=== PATIENT | female | born 1940 | race Hispanic/Latino ===

== ENCOUNTER 2018-10-14 03:53 | Inpatient (IN) | payer MEDICARE ==
[2018-10-14] MEDS ORDERED: ASPIRIN PO ONE (04:02)
[2018-10-14] MEDS ORDERED: NACL 0.9% 1000 ML 1,000 ML IV ONE (04:13)
[2018-10-14] MEDS ORDERED: CARDIZEM IV ONE (04:14)
--- NOTE | 2018-10-14 04:51 | XRay Report ---
FINAL REPORT PROCEDURE: XR CHEST 1V AP TECHNIQUE: Chest radiograph anteroposterior view. CPT 24770 HISTORY: chest pain COMPARISON: No prior studies are available for comparison. FINDINGS: Heart: Normal. Mediastinum/Vessels: Normal. Lungs/Pleural space: Normal. Bony thorax: No acute osseous abnormality. Life support devices: None. IMPRESSION: No acute cardiopulmonary abnormality.
[2018-10-14 04:53] LABS: Basophils % (Auto) 0.4 % (0.0-1.8); Eosinophils # (Auto) 0.1 K/mm3 (0.0-0.4); Eosinophils % (Auto) 0.8 % (0.0-4.3); Hematocrit 46.3 % (30.3-42.9); Hemoglobin 15.5 gm/dl (10.1-14.3); INR 0.99 (0.87-1.13); Lymphocytes # (Auto) 1.5 K/mm3 (1.2-5.4); Lymphocytes % (Auto) 17.9 % (13.4-35.0); Mean Corpuscular HGB Conc 34 % (30-34); Mean Corpuscular Volume 92 fl (79-97); Monocytes # (Auto) 0.3 K/mm3 (0.0-0.8); Monocytes % (Auto) 3.9 % (0.0-7.3); Platelet Count 169 K/mm3 (140-440); Red Blood Count 5.06 M/mm3 (3.65-5.03); Red Cell Distribution Width 14.1 % (13.2-15.2)
[2018-10-14] MEDS ORDERED: CARDIZEM PO ONE (05:05)
[2018-10-14 05:13] LABS: BUN/Creatinine Ratio 20; Blood Urea Nitrogen 14 mg/dL (7-17); Hemolysis Index 11
--- NOTE | 2018-10-14 05:15 | Emergency Department Report ---
ED Chest Pain HPI - General Chief Complaint: Chest Pain Stated Complaint: CHEST PAIN Time Seen by Provider: 10/14/18 04:13 Source: patient, EMS Mode of arrival: Stretcher Limitations: No Limitations - History of Present Illness Initial Comments: 78-year-old female presents to ED with onset of burning chest pain one hour prior to arrival. She also reports palpitations. Denies any history of arrhythmia. Denies shortness of breath. Patient found to be tachycardic with EMS with a heart rate in the 160s. Patient given 324 mg of aspirin. Patient noncompliant w/ her medications. Unsure of what meds she should be taking. PCP: Mari TALLEY Complaint: chest pain -: hour(s) (1) Onset: during rest Pain Location: substernal Pain Radiation: none Severity: moderate Severity scale (0 -10): 10 Quality: other (burning) Consistency: constant Improves With: nothing Worsens With: nothing re: denies: nausea, vomting, diaphoresis, dyspnea - Related Data Previous Rx's Medication Instructions Recorded Last Taken Type Lisinopril [Zestril TAB] 40 mg PO QDAY #30 tablet 07/18/14 Unknown Rx Pantoprazole [Protonix TAB] 40 mg PO QDAY #30 tablet 07/18/14 Unknown Rx Simvastatin (Nf) [Zocor TAB] 20 mg PO QHS #30 tablet 07/18/14 Unknown Rx amLODIPine [Norvasc] 10 mg PO QDAY #30 tablet 07/18/14 Unknown Rx hydrALAZINE [Apresoline TAB] 25 mg PO Q8HR #90 tablet 07/18/14 Unknown Rx Allergies Allergy/AdvReac Type Severity Reaction Status Date / Time codeine AdvReac Dizziness Verified 06/23/13 12:24 Heart Score - HEART Score History: Slightly suspicious EKG: Non-specific Age: > 65 Risk factors: 1-2 risk factors Troponin: < normal limit HEART Score: 4 - Critical Actions Critical Actions: 4-6 pts:12-16.6% risk of adverse cardiac event. Should be admitted ED Review of Systems ROS: Stated complaint: CHEST PAIN Other details as noted in HPI Comment: All other systems reviewed and negative Respiratory: denies: shortness of breath Cardiovascular: chest pain Gastrointestinal: denies: nausea, vomiting Musculoskeletal: other (denies legpain or swelling) ED Past Medical Hx - Past Medical History Previous Medical History?: Yes Hx Hypertension: Yes Hx Diabetes: Yes Additional medical history: HIGH CHOLESTEROL - Surgical History Past Surgical History?: Yes Additional Surgical History: HYST., C SECTION - Social History Smoking Status: Former Smoker Substance Use Type: Prescribed - Medications Home Medications: Home Medications Medication Instructions Recorded Confirmed Last Taken Type Lisinopril [Zestril TAB] 40 mg PO QDAY #30 tablet 07/18/14 Unknown Rx Pantoprazole [Protonix TAB] 40 mg PO QDAY #30 tablet 07/18/14 Unknown Rx Simvastatin (Nf) [Zocor TAB] 20 mg PO QHS #30 tablet 07/18/14 Unknown Rx amLODIPine [Norvasc] 10 mg PO QDAY #30 tablet 07/18/14 Unknown Rx hydrALAZINE [Apresoline TAB] 25 mg PO Q8HR #90 tablet 07/18/14 Unknown Rx ED Physical Exam - General Limitations: No Limitations General appearance: alert, in no apparent distress - Head Head exam: Present: atraumatic - Eye Eye exam: Present: normal appearance - ENT ENT exam: Present: mucous membranes moist - Neck Neck exam: Present: normal inspection - Respiratory Respiratory exam: Present: normal lung sounds bilaterally. Absent: respiratory distress - Cardiovascular Cardiovascular Exam: Present: tachycardia, irregular rhythm - GI/Abdominal GI/Abdominal exam: Present: soft. Absent: distended, tenderness - Extremities Exam Extremities exam: Present: normal inspection - Neurological Exam Neurological exam: Present: alert, oriented X3 - Psychiatric Psychiatric exam: Present: normal affect, normal mood - Skin Skin exam: Present: warm, dry, intact, normal color. Absent: rash ED Course Vital Signs 10/14/18 10/14/18 10/14/18 03:54 03:56 04:00 Temperature 97.7 F Pulse Rate 156 H 167 H 165 H Respiratory 27 H 16 27 H Rate Blood Pressure 146/98 146/98 O2 Sat by Pulse 97 96 Oximetry 10/14/18 10/14/18 10/14/18 04:15 04:30 04:37 Temperature Pulse Rate 144 H 147 H 161 H Respiratory 14 20 Rate Blood Pressure 136/94 146/98 138/110 O2 Sat by Pulse 95 Oximetry 10/14/18 10/14/18 10/14/18 04:46 05:00 05:20 Temperature Pulse Rate 100 H 96 H 108 H Respiratory 20 21 Rate Blood Pressure 129/46 125/54 127/65 O2 Sat by Pulse 94 97 Oximetry - Reevaluation(s) Reevaluation #1: 10/14/18 05:20 Daughter currently at bedside. States patient was actually diagnosed with A. fib approximately 2-3 months ago [place]. Patient was supposed to wear a heart monitor and follow-up with cardiology, however did not do so. Patient also noncompliant w/ meds. ED Medical Decision Making - Lab Data Result diagrams: 10/14/18 04:35 10/14/18 04:35 - EKG Data -: EKG Interpreted by Me EKG shows normal: axis, QRS complexes Rate: tachycardia (rate 162) - EKG Data Interpretation: nonspecific ST-T wave melissa, other (Afib w/ RVR) - Radiology Data Radiology results: report reviewed, image reviewed - Medical Decision Making 78-year-old female history of A. fib presents with heart rate in 160s. Repeat improved with 1 L bolus of fluids and 20 mg of Cardizem. She has history of A. fib, however is noncompliant with her medications. Chest x-ray normal, troponin negative. Patient feeling much better at this time, chest pain resolved. Will admit to hospitalist, Dr. Stephens, for further management. - Differential Diagnosis Afib w/ RVR, pulm edema, ACS Critical Care Time: Yes Critical care time in (mins) excluding proc time.: 35 Critical care attestation.: If time is entered above; I have spent that time in minutes in the direct care of this critically ill patient, excluding procedure time. Critical Care Time: 35 minutes ED Disposition Clinical Impression: Chest pain, Atrial fibrillation with rapid ventricular response Disposition: -09 OP ADMIT IP TO THIS HOSP Is pt being admited?: Yes Condition: Stable Time of Disposition: 05:23
[2018-10-14] MEDS ORDERED: LOVENOX SUB-Q ONE (05:16)
[2018-10-14] MEDS ORDERED: CARDIZEM ONE (05:20)
[2018-10-14] MEDS ORDERED: ZOFRAN IV PRN ×2 (07:08→07:14)
[2018-10-14] MEDS ORDERED: TYLENOL PO PRN ×2 (07:08→07:14)
[2018-10-14] MEDS ORDERED: SODIUM CHLORIDE FLUSH SYRINGE 10 ML IV PRN ×2 (07:08→07:14)
[2018-10-14] MEDS ORDERED: NITROSTAT SL PRN (07:14)
[2018-10-14] MEDS ORDERED: MORPHINE IV PRN (07:14)
[2018-10-14] MEDS ORDERED: LOPRESSOR IV ONE (07:25)
--- NOTE | 2018-10-14 07:45 | History and Physical Report ---
History of Present Illness Date of examination: 10/14/18 Date of admission: 10/14/2018 Chief complaint: Chest pain, palpitation History of present illness: Patient is an 78-year-old white female with past medical history of hypertension, hyperlipidemia, A. fib, acid reflex disease who was brought to the ER by EMS for complaints of palpitation and chest pain prior to arrival. Patient states that the symptoms started in the middle of the night she first started feeling her heart beating fast, lightheaded and chest. Patient states the pain was in the substernal area associated with palpitation, lightheadedness and nausea, patient also reports radiation to the left arm and numbness and tingling. Patient and daughter in the room report that she had similar episodes about 3-4 months ago, where she went to [facility] for the same complaints. She followed with cardiology and was placed in a holter monitor but she devoloped allergic reaction with the padding in the leads and they discontinued the monitoring. On arrival the ER patient's heart rate is 162, she was in A. fib, EKG showed no STEMI criteria, her blood pressure was stable. Pt was admitted for chest pain and A-fib with RVR. Past History Past Medical History: atrial fib, hypertension, hyperlipidemia Past Surgical History: No surgical history, Social history: no significant social history Family history: no significant family history Medications and Allergies Allergies Allergy/AdvReac Type Severity Reaction Status Date / Time codeine AdvReac Dizziness Verified 06/23/13 12:24 Home Medications Medication Instructions Recorded Confirmed Last Taken Type Lisinopril [Zestril TAB] 40 mg PO QDAY #30 tablet 07/18/14 Unknown Rx Pantoprazole [Protonix TAB] 40 mg PO QDAY #30 tablet 07/18/14 Unknown Rx Simvastatin (Nf) [Zocor TAB] 20 mg PO QHS #30 tablet 07/18/14 Unknown Rx amLODIPine [Norvasc] 10 mg PO QDAY #30 tablet 07/18/14 Unknown Rx hydrALAZINE [Apresoline TAB] 25 mg PO Q8HR #90 tablet 07/18/14 Unknown Rx Active Meds: Active Medications Acetaminophen (Tylenol) 650 mg PO Q4H PRN PRN Reason: Pain MILD(1-3)/Fever >100.5/RICO Acetaminophen (Tylenol) 650 mg PO Q4H PRN PRN Reason: Pain MILD(1-3)/Fever >100.5/RICO Amlodipine Besylate (Norvasc) 10 mg PO QDAY [facility] Aspirin (Ecotrin) 325 mg PO QDAY [facility] Famotidine (Pepcid) 20 mg IV BID [facility] Hydralazine HCl (Apresoline) 25 mg PO Q8HR [facility] Lisinopril (Zestril) 40 mg PO QDAY [facility] Miscellaneous Medication (Simvastatin (Nf)) 20 mg PO QHS [facility] Morphine Sulfate (Morphine) 2 mg IV Q4H PRN PRN Reason: Pain, Moderate (4-6) Nitroglycerin (Nitrostat) 0.4 mg SL Q5M PRN PRN Reason: Chest Pain Ondansetron HCl (Zofran) 4 mg IV Q8H PRN PRN Reason: Nausea And Vomiting Ondansetron HCl (Zofran) 4 mg IV Q8H PRN PRN Reason: Nausea And Vomiting Sodium Chloride (Sodium Chloride Flush Syringe 10 Ml) 10 ml IV BID [facility] Sodium Chloride (Sodium Chloride Flush Syringe 10 Ml) 10 ml IV PRN PRN PRN Reason: LINE FLUSH Sodium Chloride (Sodium Chloride Flush Syringe 10 Ml) 10 ml IV BID [facility] Sodium Chloride (Sodium Chloride Flush Syringe 10 Ml) 10 ml IV PRN PRN PRN Reason: LINE FLUSH Review of Systems Cardiovascular: chest pain, palpitations, lightheadedness Gastrointestinal: nausea Exam - Constitutional Vitals: Temp Pulse Resp BP Pulse Ox 97.7 F 90 20 117/38 95 10/14/18 03:56 10/14/18 07:00 10/14/18 07:00 10/14/18 07:00 10/14/18 07:00 General appearance: Present: no acute distress - EENT Eyes: Present: PERRL, irregular pupil - Neck Neck: Present: normal ROM - Respiratory Respiratory effort: normal Respiratory: bilateral: CTA - Cardiovascular Rhythm: regular Heart Sounds: Present: S1 & S2 - Extremities Extremities: no ischemia, No edema, Full ROM Peripheral Pulses: within normal limits - Abdominal General gastrointestinal: Present: non-tender, non-distended Female genitourinary: Present: normal - Musculoskeletal Musculoskeletal: strength equal bilaterally - Psychiatric Psychiatric: appropriate mood/affect, cooperative Results - Labs CBC & Chem 7: 10/14/18 04:35 10/14/18 04:35 Labs: Laboratory Last Values WBC 8.5 K/mm3 (4.5-11.0) 10/14/18 04:35 RBC 5.06 M/mm3 (3.65-5.03) H 10/14/18 04:35 Hgb 15.5 gm/dl (10.1-14.3) H 10/14/18 04:35 Hct 46.3 % (30.3-42.9) H 10/14/18 04:35 MCV 92 fl (79-97) 10/14/18 04:35 MCH 31 pg (28-32) 10/14/18 04:35 MCHC 34 % (30-34) 10/14/18 04:35 RDW 14.1 % (13.2-15.2) 10/14/18 04:35 Plt Count 169 K/mm3 (140-440) 10/14/18 04:35 Lymph % (Auto) 17.9 % (13.4-35.0) 10/14/18 04:35 [place] % (Auto) 3.9 % (0.0-7.3) 10/14/18 04:35 Eos % (Auto) 0.8 % (0.0-4.3) 10/14/18 04:35 Baso % (Auto) 0.4 % (0.0-1.8) 10/14/18 04:35 Lymph # 1.5 K/mm3 (1.2-5.4) 10/14/18 04:35 [place] # 0.3 K/mm3 (0.0-0.8) 10/14/18 04:35 Eos # 0.1 K/mm3 (0.0-0.4) 10/14/18 04:35 Baso # 0.0 K/mm3 (0.0-0.1) 10/14/18 04:35 Seg Neutrophils % 77.0 % (40.0-70.0) H 10/14/18 04:35 Seg Neutrophils # 6.6 K/mm3 (1.8-7.7) 10/14/18 04:35 PT 13.5 Sec. (12.2-14.9) 10/14/18 04:35 INR 0.99 (0.87-1.13) 10/14/18 04:35 Sodium 143 mmol/L (137-145) 10/14/18 04:35 Potassium 3.6 mmol/L (3.6-5.0) 10/14/18 04:35 Chloride 105.2 mmol/L (98-107) 10/14/18 04:35 Carbon Dioxide 25 mmol/L (22-30) 10/14/18 04:35 Anion Gap 16 mmol/L 10/14/18 04:35 BUN 14 mg/dL (7-17) 10/14/18 04:35 Creatinine 0.7 mg/dL (0.7-1.2) 10/14/18 04:35 Estimated GFR > 60 ml/min 10/14/18 04:35 BUN/Creatinine Ratio 20 % 10/14/18 04:35 Glucose 212 mg/dL (65-100) H 10/14/18 04:35 Calcium 9.0 mg/dL (8.4-10.2) 10/14/18 04:35 Troponin T < 0.010 ng/mL (0.00-0.029) 10/14/18 04:35 Assessment and Plan Assessment and plan: Patient is an 78-year-old female who presents with A. fib with RVR and chest pain, she is being admitted for evaluation of the presenting symptoms 1. Chest pain rule out LA 2. A. fib with RVR 3. Hypertension per history 4. Hyperlipidemia 5. Hyperglycemia 6. GERD Plan: Patient is admitted for chest pain and A. fib Continue cardiac enzymes 2 more Breasts are 2.5 time 1 dose Consult cardiology for chest pain and A. fib with RVR Resume home meds Repeat EKG with chest pain Morphine IV for chest pain Hemoglobin A1c, lipid panel DVT prophylaxis with Lovenox Continue to monitor blood pressure and heart rate Further plan per hospital course Plan discussed with patient and family in room, voiced understanding Patient's conditions and plan of care discussed with Dr Stephens VTE prophylaxis?: Chemical Plan of care discussed with patient/family: Yes
[2018-10-14 08:23] LABS: BUN/Creatinine Ratio 16; Blood Urea Nitrogen 14 mg/dL (7-17); Calcium 8.5 mg/dL (8.4-10.2); Hemolysis Index 10
[2018-10-14] MEDS ORDERED: NORVASC PO SCH (10:00)
[2018-10-14] MEDS ORDERED: SODIUM CHLORIDE FLUSH SYRINGE 10 ML IV SCH (10:00)
[2018-10-14] MEDS ORDERED: NORVASC ONE (10:30)
[2018-10-14] MEDS ORDERED: PEPCID IV ONE (10:31)
[2018-10-14] MEDS: ZESTRIL PO SCH (10:37)
[2018-10-14] MEDS: PEPCID IV SCH ×2 (10:37→22:15)
[2018-10-14] MEDS ORDERED: APRESOLINE PO SCH (14:00)
[2018-10-14] MEDS ORDERED: LOPRESSOR IV PRN (17:47)
[2018-10-14] MEDS ORDERED: NON-FORMULARY (Simvastatin (Nf) 20 MG) PO SCH (22:00)
[2018-10-14] MEDS: LOVENOX SUB-Q SCH (22:15)
[2018-10-14] MEDS: LOPRESSOR PO SCH (22:16)
[2018-10-14] MEDS: PRAVACHOL PO SCH (22:16)
[2018-10-14] MEDS: SODIUM CHLORIDE FLUSH SYRINGE 10 ML IV SCH (22:16)
[2018-10-14] MEDS: HumuLIN R SUB-Q SCH (23:10)
[2018-10-15] MEDS ORDERED: HumuLIN R SUB-Q SCH (07:30)
[2018-10-15] MEDS: HumuLIN R SUB-Q SCH ×4 (07:34→22:08)
--- NOTE | 2018-10-15 07:44 | Progress Note ---
Assessment and Plan Assessment and plan: Chest pain, palpitation History of present illness: Patient is an 78-year-old white female with past medical history of hypertension, hyperlipidemia, A. fib, acid reflex disease who was brought to the ER by EMS for complaints of palpitation and chest pain prior to arrival. . Hien nieves and daughter in the room report that she had similar episodes about 3-4 months ago, where she went to [facility] for the same complaints. She followed with cardiology and was placed in a holter monitor but she devoloped allergic reaction with the padding in the leads and they discontinued it the morning of her arrival. On arrival the ER patient's heart rate is 162, she was in A. fib -she is having chronic epigastric pain due to gerd, she admits that she self stopped her PPI and all her other meds at home Past History Past Medical History: atrial fib, hypertension, hyperlipidemia Lives in [place] [address] Diagnosis CP Afib with rvr and hypercoaguable state htn GERD hyperglycemia non adherence to meds Plan: CP likely due to tachycadia, cardiac risk strat per cariology cardiology consult fup echo Started on Beta roni PPI for gerd counseled on improved adherence to meds will need dev for stroke ppx, awaiting cardiology recs, cont full dose lovenox for now History Interval history: Review of systems Constitutional: No fevers, no malaise, no joint pains CVS: No chest pain, no orthopnea, no dyspnea on exertion, no pedal edema GI: No abdominal pain, no diarrhea, no vomiting, no constipation Respiratory: No shortness of breath, no wheezing, no coughing Hospitalist Physical - Physical exam Narrative exam: General.: Appears well, no distress, nontoxic HEENT: Moist mucous membranes, extraocular muscles intact, no lymphadenopathy Neck: supple Cardiac: S1-S2 heard Lungs: clear to auscultation bilaterally Abdomen: soft , nontender, nondistended, bowel sounds positive Extremities: no edema clubbing or cyanosis Skin: no rash or lesions Neurologic: no gross focal deficits Psych: calm, and cooperative - Constitutional Vitals: Temp Pulse Resp BP Pulse Ox 97.6 F 80 18 110/57 96 10/15/18 07:19 10/15/18 07:19 10/15/18 07:19 10/15/18 07:19 10/15/18 07:19 General appearance: Present: no acute distress Results - Labs CBC & Chem 7: 10/14/18 04:35 10/14/18 06:15 Labs: Laboratory Last Values WBC 8.5 K/mm3 (4.5-11.0) 10/14/18 04:35 RBC 5.06 M/mm3 (3.65-5.03) H 10/14/18 04:35 Hgb 15.5 gm/dl (10.1-14.3) H 10/14/18 04:35 Hct 46.3 % (30.3-42.9) H 10/14/18 04:35 MCV 92 fl (79-97) 10/14/18 04:35 MCH 31 pg (28-32) 10/14/18 04:35 MCHC 34 % (30-34) 10/14/18 04:35 RDW 14.1 % (13.2-15.2) 10/14/18 04:35 Plt Count 169 K/mm3 (140-440) 10/14/18 04:35 Lymph % (Auto) 17.9 % (13.4-35.0) 10/14/18 04:35 [place] % (Auto) 3.9 % (0.0-7.3) 10/14/18 04:35 Eos % (Auto) 0.8 % (0.0-4.3) 10/14/18 04:35 Baso % (Auto) 0.4 % (0.0-1.8) 10/14/18 04:35 Lymph # 1.5 K/mm3 (1.2-5.4) 10/14/18 04:35 [place] # 0.3 K/mm3 (0.0-0.8) 10/14/18 04:35 Eos # 0.1 K/mm3 (0.0-0.4) 10/14/18 04:35 Baso # 0.0 K/mm3 (0.0-0.1) 10/14/18 04:35 Seg Neutrophils % 77.0 % (40.0-70.0) H 10/14/18 04:35 Seg Neutrophils # 6.6 K/mm3 (1.8-7.7) 10/14/18 04:35 PT 13.5 Sec. (12.2-14.9) 10/14/18 04:35 INR 0.99 (0.87-1.13) 10/14/18 04:35 Sodium 137 mmol/L (137-145) 10/14/18 06:15 Potassium 3.8 mmol/L (3.6-5.0) 10/14/18 06:15 Chloride 98.3 mmol/L (98-107) 10/14/18 06:15 Carbon Dioxide 27 mmol/L (22-30) 10/14/18 06:15 Anion Gap 16 mmol/L 10/14/18 06:15 BUN 14 mg/dL (7-17) 10/14/18 06:15 Creatinine 0.9 mg/dL (0.7-1.2) 10/14/18 06:15 Estimated GFR > 60 ml/min 10/14/18 06:15 BUN/Creatinine Ratio 16 % 10/14/18 06:15 Glucose 207 mg/dL (65-100) H 10/14/18 06:15 POC Glucose 128 (70-105) H 10/15/18 06:47 Calcium 8.5 mg/dL (8.4-10.2) 10/14/18 06:15 Troponin T < 0.010 ng/mL (0.00-0.029) 10/14/18 16:55
[2018-10-15] MEDS: ZESTRIL PO SCH (10:00)
[2018-10-15] MEDS ORDERED: LOVENOX SUB-Q SCH (10:00)
[2018-10-15] MEDS: ECOTRIN PO SCH (10:01)
[2018-10-15] MEDS: LOPRESSOR PO SCH ×3 (10:01→22:10)
[2018-10-15] MEDS: LOVENOX SUB-Q SCH ×2 (10:02→22:07)
[2018-10-15] MEDS: PROTONIX PO SCH (10:02)
[2018-10-15] MEDS: SODIUM CHLORIDE FLUSH SYRINGE 10 ML IV SCH ×2 (10:06→22:08)
[2018-10-15] MEDS ORDERED: LOPRESSOR PO SCH (12:23)
[2018-10-15] MEDS: PRAVACHOL PO SCH (22:07)
--- NOTE | 2018-10-15 23:42 | Consultation ---
CARDIOLOGY CONSULTATION REFERRING PHYSICIAN: Anurag Stephens M.D. PRIMARY PHYSICIAN: Mari. CHIEF COMPLAINT: Chest pain and palpitations. HISTORY OF PRESENT ILLNESS: The patient is a pleasant 78-year-old female with hypertension, hyperlipidemia, paroxysmal atrial fibrillation, and gastroesophageal reflux disease, who presents here with chest pain and palpitations. She was found to be in AFib with RVR upon arrival. Apparently, she was at [facility] for similar complaints several months ago. Upon arrival, she complained of palpitations, lightheadedness, nausea, and chest pain. She is completely asymptomatic at this point. No fevers, chills, nausea, or vomiting. No headache. No abdominal pain, rash, hematochezia, melena, or hemoptysis. No blurred vision or headache. Currently, feeling normal. PAST MEDICAL HISTORY: Atrial fibrillation, hypertension, and hyperlipidemia. ALLERGIES: CODEINE. MEDICATIONS: Inpatient and outpatient medications reviewed. Of note, she is not on systemic anticoagulation as an outpatient nor antiplatelet therapy, at least per our record. REVIEW OF SYSTEMS: As per HPI. FAMILY HISTORY: No family history of premature heart disease. PHYSICAL EXAMINATION: VITAL SIGNS: Telemetry reveals atrial fibrillation with a controlled ventricular response. Heart rate in the 70s-90s, blood pressure is 110/70. She is afebrile, respiratory rate 12. HEENT: Sclerae are anicteric. Conjunctivae pale. NECK: Supple, no masses, no JVD. CHEST: Clear to auscultation bilaterally. Good air movement. CARDIOVASCULAR: Irregularly irregular with controlled ventricular response. ABDOMEN: Soft, nontender, nondistended. Normoactive bowel sounds in all 4 quadrants. No masses or bruits. EXTREMITIES: No cyanosis, clubbing, or edema. Good peripheral pulses. SKIN: Intact. No rashes. LABORATORY DATA AND IMAGING: WBC is 8.5, hemoglobin 15.5, hematocrit 46.3, platelets 169. Coags are normal. Glucose is elevated at 193. Potassium 3.8, creatinine 0.9. Cardiac enzymes negative x2. LDL is 152, HDL is 46. TSH is 0.32. EKG reveals atrial fibrillation with a controlled ventricular response. Chest x-ray is unremarkable. ASSESSMENT: In summary, the patient is a pleasant 78-year-old female: 1. Atrial fibrillation with rapid ventricular response, now with controlled ventricular response. At this point, continue Lovenox b.i.d., and metoprolol for heart rate control. Agree with statin therapy, HYACINTH, as well as aspirin. We will perform a nuclear stress test in the a.m. Will need long-term systemic anticoagulation given elevated CHADS score. Follow up on echocardiogram. Other medical problems including diabetes as per primary physician. She will follow up with [facility]. Thank you for this consultation. We will be happy to follow along with you. JOB# [id number] GEOFFREY/NTS
[2018-10-16] MEDS: HumuLIN R SUB-Q SCH ×4 (08:22→22:14)
[2018-10-16] MEDS ORDERED: LEXISCAN IV ONE ×2 (10:26→10:27)
--- NOTE | 2018-10-16 11:03 | Progress Note ---
Assessment and Plan S/p lexiscan MPI stress test this AM which was negative. Optimize HR - initiate PO amio 400mg TID and continue PO lopressor. D/c lovenox and initiate Eliquis. The patient has been seen in conjunction with Dr. Ibarra who agrees with the assessment and plan of care. - Patient Problems (1) Atrial fibrillation with rapid ventricular response Current Visit: Yes Status: Acute (2) Chest pain Current Visit: Yes Status: Acute (3) HTN (hypertension) Current Visit: Yes Status: Chronic (4) Diabetes Current Visit: Yes Status: Chronic (5) GERD (gastroesophageal reflux disease) Current Visit: Yes Status: Chronic Subjective Date of service: 10/16/18 Principal diagnosis: AFib; chest pain Interval history: pt for stress test, no current cardiac complaints. tele reviewed - pt in AFib with HR 110s - 120s. Objective Last Vital Signs Temp 98.5 F 10/16/18 08:28 Pulse 66 10/16/18 08:28 Resp 16 10/16/18 08:28 BP 128/75 10/16/18 08:28 Pulse Ox 98 10/16/18 08:28 - Physical Examination General: No Apparent Distress HEENT: Positive: PERRL, Normocephaly, Mucus Membranes Moist Cardiac: Positive: irregularly irregular, S1/S2 Lungs: Positive: clear to auscultation Neuro: Positive: Grossly Intact Abdomen: Positive: Soft. Negative: Tender Skin: Negative: Rash, Wound Musculoskeletal: No Pain Extremities: Absent: edema - Imaging and Cardiology EKG: report reviewed, image reviewed Echo: report reviewed (EF 60-65%, mild LVH, RV systolic function mildly reduced) - Telemetry EKG Rhythm: Atrial Fibrillation
--- NOTE | 2018-10-16 11:47 | Progress Note ---
Assessment and Plan Assessment and plan: Chest pain, palpitation History of present illness: Patient is an 78-year-old white female with past medical history of hypertension, hyperlipidemia, A. fib, acid reflex disease who was brought to the ER by EMS for complaints of palpitation and chest pain prior to arrival. . Hien nieves and daughter in the room report that she had similar episodes about 3-4 months ago, where she went to [facility] for the same complaints. She followed with cardiology and was placed in a holter monitor but she devoloped allergic reaction with the padding in the leads and they discontinued it the morning of her arrival. On arrival the ER patient's heart rate is 162, she was in A. fib -she is having chronic epigastric pain due to gerd, she admits that she self stopped her PPI and all her other meds at home Past History Past Medical History: atrial fib, hypertension, hyperlipidemia Lives in [place] apartments Diagnosis CP Afib with rvr and hypercoaguable state htn GERD hyperglycemia non adherence to meds Plan: CP likely due to tachycadia, cardiac risk strat per cariology, for stress test today rate control meds optimized per cardiology Lisinopril dc due to hypotension cardiology consult echo shows preserved EF Started on Beta roni PPI for gerd counseled on improved adherence to meds will need NOAC prior to dc, cont full dose lovenox for now History Interval history: was intermittently tachycardic overnight Review of systems Constitutional: No fevers, no malaise, no joint pains CVS: No chest pain, no orthopnea, no dyspnea on exertion, no pedal edema GI: No abdominal pain, no diarrhea, no vomiting, no constipation Respiratory: No shortness of breath, no wheezing, no coughing Hospitalist Physical - Physical exam Narrative exam: General.: Appears well, no distress, nontoxic HEENT: Moist mucous membranes, extraocular muscles intact, no lymphadenopathy Neck: supple Cardiac: S1-S2 heard Lungs: clear to auscultation bilaterally Abdomen: soft , nontender, nondistended, bowel sounds positive Extremities: no edema clubbing or cyanosis Skin: no rash or lesions Neurologic: no gross focal deficits Psych: calm, and cooperative - Constitutional Vitals: Temp Pulse Resp BP Pulse Ox 98.5 F 66 18 128/75 99 10/16/18 08:28 10/16/18 10:00 10/16/18 10:00 10/16/18 08:28 10/16/18 10:00 General appearance: Present: no acute distress Results - Labs CBC & Chem 7: 10/14/18 04:35 10/14/18 06:15 Labs: Laboratory Last Values WBC 8.5 K/mm3 (4.5-11.0) 10/14/18 04:35 RBC 5.06 M/mm3 (3.65-5.03) H 10/14/18 04:35 Hgb 15.5 gm/dl (10.1-14.3) H 10/14/18 04:35 Hct 46.3 % (30.3-42.9) H 10/14/18 04:35 MCV 92 fl (79-97) 10/14/18 04:35 MCH 31 pg (28-32) 10/14/18 04:35 MCHC 34 % (30-34) 10/14/18 04:35 RDW 14.1 % (13.2-15.2) 10/14/18 04:35 Plt Count 169 K/mm3 (140-440) 10/14/18 04:35 Lymph % (Auto) 17.9 % (13.4-35.0) 10/14/18 04:35 [place] % (Auto) 3.9 % (0.0-7.3) 10/14/18 04:35 Eos % (Auto) 0.8 % (0.0-4.3) 10/14/18 04:35 Baso % (Auto) 0.4 % (0.0-1.8) 10/14/18 04:35 Lymph # 1.5 K/mm3 (1.2-5.4) 10/14/18 04:35 [place] # 0.3 K/mm3 (0.0-0.8) 10/14/18 04:35 Eos # 0.1 K/mm3 (0.0-0.4) 10/14/18 04:35 Baso # 0.0 K/mm3 (0.0-0.1) 10/14/18 04:35 Seg Neutrophils % 77.0 % (40.0-70.0) H 10/14/18 04:35 Seg Neutrophils # 6.6 K/mm3 (1.8-7.7) 10/14/18 04:35 PT 13.5 Sec. (12.2-14.9) 10/14/18 04:35 INR 0.99 (0.87-1.13) 10/14/18 04:35 Sodium 137 mmol/L (137-145) 10/14/18 06:15 Potassium 3.8 mmol/L (3.6-5.0) 10/14/18 06:15 Chloride 98.3 mmol/L (98-107) 10/14/18 06:15 Carbon Dioxide 27 mmol/L (22-30) 10/14/18 06:15 Anion Gap 16 mmol/L 10/14/18 06:15 BUN 14 mg/dL (7-17) 10/14/18 06:15 Creatinine 0.9 mg/dL (0.7-1.2) 10/14/18 06:15 Estimated GFR > 60 ml/min 10/14/18 06:15 BUN/Creatinine Ratio 16 % 10/14/18 06:15 Glucose 207 mg/dL (65-100) H 10/14/18 06:15 POC Glucose 119 (70-105) H 10/16/18 06:15 Calcium 8.5 mg/dL (8.4-10.2) 10/14/18 06:15 Troponin T < 0.010 ng/mL (0.00-0.029) 10/14/18 16:55
[2018-10-16] MEDS ORDERED: LOVENOX SUB-Q SCH (12:00)
[2018-10-16] MEDS: SODIUM CHLORIDE FLUSH SYRINGE 10 ML IV SCH ×2 (12:02→22:10)
[2018-10-16] MEDS: ECOTRIN PO SCH (12:03)
[2018-10-16] MEDS: LOPRESSOR PO SCH ×2 (12:04→22:10)
[2018-10-16] MEDS: PROTONIX PO SCH (12:07)
[2018-10-16] MEDS: LOVENOX SUB-Q SCH (12:07)
[2018-10-16] MEDS: CORDARONE PO SCH ×3 (13:22→20:46)
--- NOTE | 2018-10-16 14:37 | Treadmill Report ---
LEXISCAN STRESS TEST REPORT REASON FOR STUDY: Chest pain and atrial fibrillation. STRESS TEST PROTOCOL: The patient received 0.4 mg of Lexiscan intravenously over 10 seconds. Tc-99m tetrofosmin was subsequently injected. Baseline EKG, atrial fibrillation with mildly rapid ventricular rate. Lexiscan EKG, no significant change from baseline. No chest pain. No arrhythmias other than baseline atrial fibrillation. IMPRESSION: Nondiagnostic due to baseline EKG abnormalities. Nuclear imaging report to follow. JOB# [id number] AGO/NTS
[2018-10-16] MEDS: ELIQUIS PO SCH (22:10)
[2018-10-16] MEDS: PRAVACHOL PO SCH (22:10)
--- NOTE | 2018-10-16 22:59 | Treadmill Report ---
THALLIUM REPORT REASON FOR STUDY: Chest pain. IMAGING PROTOCOL: The patient received 10.20 mCi of technetium-99m Tetrofosmin for rest imaging, and 29.78 mCi of technetium-99m Tetrofosmin for stress imaging. Imaging for all procedures was completed 30-90 minutes following the initial injection of Technetium 99m Tetrofosmin. SPECT imaging in the 180 degree arc was performed in the right anterior oblique projection. Computerized reconstruction of the images was performed for analysis. NUCLEAR IMAGING RESULTS: Normal left ventricular cavity size with no change from stress to rest. Distribution of radionuclide within the left ventricle revealed normal myocardial photon uptake with stress and rest imaging. Gated SPECT imaging could not be performed with this study due to atrial fibrillation. IMPRESSION: Normal stress and rest myocardial perfusion imaging. No evidence of significant stress-induced ischemia or prior infarction. JOB# [id number] KAUSHIK/TRICIA
[2018-10-17 06:44] LABS: Chol/HDL Ratio 3.81 %
[2018-10-17] MEDS: CORDARONE PO SCH ×3 (08:51→20:25)
[2018-10-17] MEDS: HumuLIN R SUB-Q SCH ×4 (08:51→22:08)
[2018-10-17] MEDS: SODIUM CHLORIDE FLUSH SYRINGE 10 ML IV SCH ×3 (10:29→22:06)
[2018-10-17] MEDS: LOPRESSOR PO SCH ×2 (10:30→22:07)
[2018-10-17] MEDS: PROTONIX PO SCH (10:31)
[2018-10-17] MEDS: ELIQUIS PO SCH ×2 (10:31→22:07)
--- NOTE | 2018-10-17 10:42 | Progress Note ---
Assessment and Plan Cont PO amio 400mg TID in hopes of conversion to SR, cont lopressor. Cont Eliquis. The patient has been seen in conjunction with Dr. Ibarra who agrees with the assessment and plan of care. - Patient Problems (1) Atrial fibrillation with rapid ventricular response Current Visit: Yes Status: Acute (2) Chest pain Current Visit: Yes Status: Acute (3) HTN (hypertension) Current Visit: Yes Status: Chronic (4) Diabetes Current Visit: Yes Status: Chronic (5) GERD (gastroesophageal reflux disease) Current Visit: Yes Status: Chronic Subjective Date of service: 10/17/18 Principal diagnosis: AFib; chest pain Interval history: pt sitting up at bedside, no current cardiac complaints. tele reviewed - pt in AFib with HR 90s. Objective Last Vital Signs Temp 97.7 F 10/17/18 08:02 Pulse 79 10/17/18 10:30 Resp 16 10/17/18 08:02 BP 140/75 10/17/18 10:30 Pulse Ox 94 10/17/18 08:58 - Physical Examination General: No Apparent Distress HEENT: Positive: PERRL, Normocephaly, Mucus Membranes Moist Cardiac: Positive: irregularly irregular, S1/S2 Lungs: Positive: clear to auscultation Neuro: Positive: Grossly Intact Abdomen: Positive: Soft. Negative: Tender Skin: Negative: Rash, Wound Musculoskeletal: No Pain Extremities: Absent: edema - Labs and Meds Lipids 10/17/18 Range/Units 04:45 Triglycerides 115 (2-149) mg/dL Cholesterol 145 (50-199) mg/dL HDL Cholesterol 38 L (40-59) mg/dL Cholesterol/HDL Ratio 3.81 % - Imaging and Cardiology EKG: report reviewed, image reviewed Echo: report reviewed (EF 60-65%, mild LVH, RV systolic function mildly reduced)
--- NOTE | 2018-10-17 12:09 | Progress Note ---
Assessment and Plan Assessment and plan: Chest pain, palpitation History of present illness: Patient is an 78-year-old white female with past medical history of hypertension, hyperlipidemia, A. fib, acid reflex disease who was brought to the ER by EMS for complaints of palpitation and chest pain prior to arrival. . Hien nieves and daughter in the room report that she had similar episodes about 3-4 months ago, where she went to [facility] for the same complaints. She followed with cardiology and was placed in a holter monitor but she devoloped allergic reaction with the padding in the leads and they discontinued it the morning of her arrival. On arrival the ER patient's heart rate is 162, she was in A. fib -she is having chronic epigastric pain due to gerd, she admits that she self stopped her PPI and all her other meds at home Past History Past Medical History: atrial fib, hypertension, hyperlipidemia Lives in [place] apartments Diagnosis CP Afib with rvr and hypercoaguable state htn GERD hyperglycemia, Type 2 DM,. a1c 7.7 non adherence to meds Plan: CP likely due to tachycadia, cardiac risk strat per cariology, stress test neg rate control meds optimized per cardiology Lisinopril dc due to hypotension cardiology consult echo shows preserved EF Started on Beta roni and amio PPI for gerd will likely dc on metformin and diet control for DM counseled on improved adherence to meds anticoagulated with Eliquis for stroke ppx History Interval history: was intermittently tachycardic overnight Review of systems Constitutional: No fevers, no malaise, no joint pains CVS: No chest pain, no orthopnea, no dyspnea on exertion, no pedal edema GI: No abdominal pain, no diarrhea, no vomiting, no constipation Respiratory: No shortness of breath, no wheezing, no coughing Hospitalist Physical - Physical exam Narrative exam: General.: Appears well, no distress, nontoxic HEENT: Moist mucous membranes, extraocular muscles intact, no lymphadenopathy Neck: supple Cardiac: S1-S2 heard Lungs: clear to auscultation bilaterally Abdomen: soft , nontender, nondistended, bowel sounds positive Extremities: no edema clubbing or cyanosis Skin: no rash or lesions Neurologic: no gross focal deficits Psych: calm, and cooperative - Constitutional Vitals: Temp Pulse Resp BP Pulse Ox 97.7 F 79 19 140/75 97 10/17/18 08:02 10/17/18 10:30 10/17/18 10:00 10/17/18 10:30 10/17/18 10:00 General appearance: Present: no acute distress Results - Labs CBC & Chem 7: 10/14/18 04:35 10/14/18 06:15 Labs: Laboratory Last Values WBC 8.5 K/mm3 (4.5-11.0) 10/14/18 04:35 RBC 5.06 M/mm3 (3.65-5.03) H 10/14/18 04:35 Hgb 15.5 gm/dl (10.1-14.3) H 10/14/18 04:35 Hct 46.3 % (30.3-42.9) H 10/14/18 04:35 MCV 92 fl (79-97) 10/14/18 04:35 MCH 31 pg (28-32) 10/14/18 04:35 MCHC 34 % (30-34) 10/14/18 04:35 RDW 14.1 % (13.2-15.2) 10/14/18 04:35 Plt Count 169 K/mm3 (140-440) 10/14/18 04:35 Lymph % (Auto) 17.9 % (13.4-35.0) 10/14/18 04:35 [place] % (Auto) 3.9 % (0.0-7.3) 10/14/18 04:35 Eos % (Auto) 0.8 % (0.0-4.3) 10/14/18 04:35 Baso % (Auto) 0.4 % (0.0-1.8) 10/14/18 04:35 Lymph # 1.5 K/mm3 (1.2-5.4) 10/14/18 04:35 [place] # 0.3 K/mm3 (0.0-0.8) 10/14/18 04:35 Eos # 0.1 K/mm3 (0.0-0.4) 10/14/18 04:35 Baso # 0.0 K/mm3 (0.0-0.1) 10/14/18 04:35 Seg Neutrophils % 77.0 % (40.0-70.0) H 10/14/18 04:35 Seg Neutrophils # 6.6 K/mm3 (1.8-7.7) 10/14/18 04:35 PT 13.5 Sec. (12.2-14.9) 10/14/18 04:35 INR 0.99 (0.87-1.13) 10/14/18 04:35 Sodium 137 mmol/L (137-145) 10/14/18 06:15 Potassium 3.8 mmol/L (3.6-5.0) 10/14/18 06:15 Chloride 98.3 mmol/L (98-107) 10/14/18 06:15 Carbon Dioxide 27 mmol/L (22-30) 10/14/18 06:15 Anion Gap 16 mmol/L 10/14/18 06:15 BUN 14 mg/dL (7-17) 10/14/18 06:15 Creatinine 0.9 mg/dL (0.7-1.2) 10/14/18 06:15 Estimated GFR > 60 ml/min 10/14/18 06:15 BUN/Creatinine Ratio 16 % 10/14/18 06:15 Glucose 207 mg/dL (65-100) H 10/14/18 06:15 POC Glucose 140 (70-105) H 10/17/18 11:50 Hemoglobin A1c 7.7 % (4-6) H 10/17/18 04:45 Calcium 8.5 mg/dL (8.4-10.2) 10/14/18 06:15 Troponin T < 0.010 ng/mL (0.00-0.029) 10/14/18 16:55 Triglycerides 115 mg/dL (2-149) 10/17/18 04:45 Cholesterol 145 mg/dL (50-199) 10/17/18 04:45 LDL Cholesterol Direct 100 mg/dL (50-130) 10/17/18 04:45 HDL Cholesterol 38 mg/dL (40-59) L 10/17/18 04:45 Cholesterol/HDL Ratio 3.81 % 10/17/18 04:45
[2018-10-17] MEDS: PRAVACHOL PO SCH (22:07)
[2018-10-18] MEDS: HumuLIN R SUB-Q SCH ×3 (08:22→16:36)
[2018-10-18] MEDS: ELIQUIS PO SCH (09:04)
[2018-10-18] MEDS: CORDARONE PO SCH (09:04)
[2018-10-18] MEDS: LOPRESSOR PO SCH (09:04)
[2018-10-18] MEDS: SODIUM CHLORIDE FLUSH SYRINGE 10 ML IV SCH (09:05)
[2018-10-18] MEDS: PROTONIX PO SCH (09:05)
--- NOTE | 2018-10-18 11:03 | Progress Note ---
Assessment and Plan D/c amio and initiate digoxin. Cont lopressor. Cont Eliquis. Pt currently in AFib with CVR. Pending HR remains WNL, pt may discharge home as early as this afternoon. Follow up in our [place] office with Dr. Thompson on 11/01/2018 @ 3:30PM. The patient has been seen in conjunction with Dr. Ibarra who agrees with the assessment and plan of care. - Patient Problems (1) Atrial fibrillation with rapid ventricular response Current Visit: Yes Status: Acute (2) Chest pain Current Visit: Yes Status: Acute (3) HTN (hypertension) Current Visit: Yes Status: Chronic (4) Diabetes Current Visit: Yes Status: Chronic (5) GERD (gastroesophageal reflux disease) Current Visit: Yes Status: Chronic Subjective Date of service: 10/18/18 Principal diagnosis: AFib; chest pain Interval history: pt sitting up at bedside, no current cardiac complaints. tele reviewed - pt in AFib with HR 70s. Objective Last Vital Signs Temp 97.4 F L 10/18/18 07:39 Pulse 72 10/18/18 08:52 Resp 16 10/18/18 07:39 BP 127/75 10/18/18 07:39 Pulse Ox 98 10/18/18 07:39 - Physical Examination General: No Apparent Distress HEENT: Positive: PERRL, Normocephaly, Mucus Membranes Moist Cardiac: Positive: irregularly irregular, S1/S2 Lungs: Positive: Decreased Breath Sounds Neuro: Positive: Grossly Intact Abdomen: Positive: Soft. Negative: Tender Skin: Negative: Rash, Wound Musculoskeletal: No Pain Extremities: Absent: edema - Imaging and Cardiology EKG: report reviewed, image reviewed Echo: report reviewed (EF 60-65%, mild LVH, RV systolic function mildly reduced)
[2018-10-18] MEDS ORDERED: LANOXIN PO SCH (12:00)
--- NOTE | 2018-10-18 12:25 | Discharge Summary ---
Providers - Providers Date of Admission: 10/14/18 07:08 Attending physician: JAMIE RODRIGUEZ MD 10/14/18 Consult to Cardiac Rehabilitation [CONS] Routine Reason For Exam: Phase I 10/14/18 07:14 Consult to Physician [CONS] Routine Comment: Consulting Provider: KAYA MIRAMONTES Physician Instructions: Reason For Exam: chest pain, A-Fib with RVR Primary care physician: JURGEN VELASQUEZ Hospitalization Condition: Stable Hospital course: Patient is an 78-year-old white female with past medical history of hypertension, hyperlipidemia, A. fib, acid reflex disease who was brought to the ER by EMS for complaints of palpitation and chest pain prior to arrival. . Patient and daughter in the room report that she had similar episodes about 3-4 months ago, where she went to [facility] for the same complaints. She followed with cardiology and was placed in a holter monitor but she devoloped allergic reaction with the padding in the leads and they discontinued it the morning of her arrival. On arrival the ER patient's heart rate is 162, she was in A. fib -she is having chronic epigastric pain due to gerd, she admits that she self stopped her PPI and all her other meds at home -The patient's was put on rate and rhythm control medications for A. fib. She had an echo that showed preserved EF, negative stress test -Lisinopril was discontinued due to hypotension, she received cardiology consult during her hospital stay -She was started back on her PPI for GERD -She improved, she was counseled on improved compliance/adherence to her medications. -I personally spoke to Dr. Burt at [facility] through her insurance company. And he stated that they will provide her with transitional care, send a nurse to the house to check on her frequently and prevents readmission -, she was initally anticoagualated with lovenox, and she was started on eliquis for stroke ppx prior to dc -she was started on metformin for rx of DM Past History Past Medical History: atrial fib, hypertension, hyperlipidemia social hx; Lives in [place] apartments Diagnosis CP Afib with rvr and hypercoaguable state htn GERD hyperglycemia, Type 2 DM,. a1c 7.7 non adherence to meds major depression/ anxiety disorder Disposition: DC/[place]-06 HOME UNDER HOME [facility] Time spent for discharge: 33 mins Core Measure Documentation - Palliative Care Palliative Care/ Comfort Measures: Not Applicable - Core Measures Any of the following diagnoses?: none Exam - Constitutional Vitals: Temp Pulse Resp BP Pulse Ox 97.4 F L 72 16 127/75 98 10/18/18 07:39 10/18/18 08:52 10/18/18 07:39 10/18/18 07:39 10/18/18 07:39 General appearance: Present: no acute distress, well-nourished - EENT Eyes: Present: PERRL ENT: hearing intact, clear oral mucosa - Neck Neck: Present: supple, normal ROM - Respiratory Respiratory effort: normal Respiratory: bilateral: CTA - Cardiovascular Heart Sounds: Present: S1 & S2. Absent: rub, click - Extremities Extremities: pulses symmetrical, No edema Peripheral Pulses: within normal limits - Abdominal General gastrointestinal: Present: soft, non-tender, non-distended, normal bowel sounds Female genitourinary: Present: normal - Integumentary Integumentary: Present: clear, warm, dry - Musculoskeletal Musculoskeletal: gait normal, strength equal bilaterally - Psychiatric Psychiatric: appropriate mood/affect, intact judgment & insight - Neurologic Neurologic: CNII-XII intact, moves all extremities Plan Follow up with: NARGIS PONCE MD [Staff Physician] - 7 Days (Follow up in our [place] office with Dr. Ponce on 11/01/2018 @ 3:30PM. ) JURGEN VELASQUEZ MD [Primary Care Provider] - 3-5 Days Prescriptions: Pravastatin [Pravachol] 40 mg PO QHS #30 tablet Apixaban [Eliquis] 5 mg PO Q12HR #60 tablet Digoxin [Lanoxin] 0.125 mg PO DAILY@1700 #30 tablet metFORMIN XR [Glucophage XR] 500 mg PO QDAY #30 tab Metoprolol Tartrate 25 mg PO BID #60 tablet Pantoprazole [Protonix TAB] 40 mg PO QDAY #30 tablet
[2018-10-18 13:14] VITALS: BP 115/67
== END 2018-10-18 16:51 | disposition home health service (06) | DRG 309 ==
LOC: ED 03:53 → SUATTDRO 03:53 → 4A 07:08
PROVIDERS: ADMIT Internal Medicine; ATTEND Internal Medicine
DX: I48.91 Unspecified atrial fibrillation (principal); D68.59 Other primary thrombophilia; R07.89 Other chest pain; E11.65 Type 2 diabetes mellitus with hyperglycemia; R00.0 Tachycardia, unspecified; Z88.6 Allergy status to analgesic agent; I10 Essential (primary) hypertension; E78.00 Pure hypercholesterolemia, unspecified; Z90.710 Acquired absence of both cervix and uterus; Z79.899 Other long term (current) drug therapy; K21.9 Gastro-esophageal reflux disease without esophagitis; E78.5 Hyperlipidemia, unspecified; Z91.19 Patient's noncompliance with other medical treatment and regimen; F32.9 Major depressive disorder, single episode, unspecified; F41.9 Anxiety disorder, unspecified; Z87.891 Personal history of nicotine dependence
CPT/HCPCS: 36415; 71045; 78452; 80048; 80061; 82962; 83036; 84484; 85025; 85610; 93005; 93010; 93017; 93306; G0378; A9270-GY; A9502; J1650; J1815; J2785; J7030

== ENCOUNTER 2018-10-22 15:43 | Emergency (ER) | payer MEDICARE ==
[2018-10-22] MEDS ORDERED: CARDIZEM IV ONE (16:32)
--- NOTE | 2018-10-22 16:36 | Emergency Department Report ---
HPI - General Chief Complaint: Arrhythmia/Palpitations Time Seen by Provider: 10/22/18 16:01 - [facility] HPI: Room 26 The patient is an 78-year-old female presenting with a chief complaint of chest discomfort and palpitations. The patient states for the past 3 days she's had intermittent shortness of breath, palpitations and chest pressure. Patient was recently diagnosed with atrial fibrillation started on Eliquis, metoprolol and digoxin. Patient denies nausea/vomiting or diaphoresis. When asked how she is feeling now the patient reports she feels "good." Location: [See above] Duration: [See above] Quality: Pressure Severity: Moderate Modifying factors: [see above] Context: [see above] Mode of transportation: [not driving] ED Past Medical Hx - Past Medical History Hx Hypertension: Yes (diet controlled) Hx Diabetes: Yes (diet controlled) Hx GERD: Yes Additional medical history: HIGH CHOLESTEROL,AFIB - Surgical History Additional Surgical History: HYST., C SECTION - Family History Family history: no significant - Social History Smoking Status: Former Smoker (none 40 years) Substance Use Type: None - Medications Home Medications: Home Medications Medication Instructions Recorded Confirmed Last Taken Type Apixaban [Eliquis] 5 mg PO Q12HR #60 tablet 10/18/18 10/22/18 Unknown Rx Digoxin [Lanoxin] 0.125 mg PO DAILY@1700 #30 tablet 10/18/18 Unknown Rx Metoprolol Tartrate 25 mg PO BID #60 tablet 10/18/18 10/22/18 Unknown Rx Omeprazole 20 mg PO DAILY 10/22/18 10/22/18 Unknown History ED Review of Systems ROS: Stated complaint: AFIB Other details as noted in HPI Constitutional: no symptoms reported Eyes: denies: eye pain ENT: denies: throat pain Respiratory: shortness of breath Cardiovascular: chest pain, palpitations Endocrine: no symptoms reported Gastrointestinal: denies: nausea, vomiting Genitourinary: denies: dysuria Musculoskeletal: denies: back pain Neurological: denies: headache Physical Exam - Physical Exam Vital Signs: Vital Signs 10/22/18 15:51 Temperature 98.4 F Pulse Rate 79 Respiratory 18 Rate Blood Pressure 144/99 O2 Sat by Pulse 97 Oximetry Physical Exam: GENERAL: The patient is well-developed well-nourished female lying on stretcher not appearing to be in acute distress. [] HEENT: Normocephalic. Atraumatic. Extraocular motions are intact. Patient has moist mucous membranes. NECK: Supple. Trachea midline CHEST/LUNGS: Clear to auscultation. There is no respiratory distress noted. HEART/CARDIOVASCULAR: Irregularly irregular. There is tachycardia. There is no gallop rub or murmur. ABDOMEN: Abdomen is soft, nontender. Patient has normal bowel sounds. There is no abdominal distention. SKIN: There is no rash. There is no edema. There is no diaphoresis. NEURO: The patient is awake, alert, and oriented. The patient is cooperative. The patient has normal speech MUSCULOSKELETAL: There is no evidence of acute injury. ED Course Vital Signs 10/22/18 15:51 Temperature 98.4 F Pulse Rate 79 Respiratory 18 Rate Blood Pressure 144/99 O2 Sat by Pulse 97 Oximetry - Consultations Consultation #1: 10/22/18 17:59 Cardiology paged 10/22/18 18:[address] Lombardo- states patient should continue medication as prescribed and follow up with sugar cane grower within the next 2-3 days. ED Medical Decision Making - Lab Data Result diagrams: 10/22/18 16:55 10/22/18 16:55 - EKG Data -: EKG Interpreted by Me Rate: tachycardia (135 bpm) - EKG Data When compared to previous EKG there are: previous EKG unavailable Interpretation: other (atrial fibrillation with a rapid ventricular response) - Differential Diagnosis A. fib with rapid ventricular response Critical care attestation.: If time is entered above; I have spent that time in minutes in the direct care of this critically ill patient, excluding procedure time. ED Disposition Clinical Impression: Atrial fibrillation with rapid ventricular response Disposition: DC-01 TO HOME OR SELFCARE Is pt being admited?: No Does the pt Need Aspirin: No Condition: Stable Instructions: Palpitations (ED) Additional Instructions: Return to the emergency department immediately should you develop worsening symptoms, fever, inability to tolerate food or liquid or any other concerns. Referrals: ALLEN MCCAULEY [Primary Care Provider] - 3-5 Days RENEE LOMBARDO MD [Staff Physician] - 2-3 Days (Dr Lombadro is a sugar cane grower. Please follow up with him for further evaluation) Time of Disposition: 18:11
[2018-10-22 17:08] LABS: Basophils # (Auto) 0.1 K/mm3 (0.0-0.1); Basophils % (Auto) 0.7 % (0.0-1.8); Eosinophils # (Auto) 0.1 K/mm3 (0.0-0.4); Eosinophils % (Auto) 1.4 % (0.0-4.3); Hematocrit 43.4 % (30.3-42.9); Hemoglobin 14.4 gm/dl (10.1-14.3); Lymphocytes # (Auto) 1.7 K/mm3 (1.2-5.4); Lymphocytes % (Auto) 22.9 % (13.4-35.0); Mean Corpuscular HGB Conc 33 % (30-34); Mean Corpuscular Volume 92 fl (79-97); Monocytes # (Auto) 0.4 K/mm3 (0.0-0.8); Monocytes % (Auto) 5.3 % (0.0-7.3); Platelet Count 181 K/mm3 (140-440); Red Blood Count 4.71 M/mm3 (3.65-5.03); Red Cell Distribution Width 14.4 % (13.2-15.2)
[2018-10-22 17:20] LABS: INR 1.01 (0.87-1.13)
[2018-10-22 17:43] LABS: BUN/Creatinine Ratio 13; Blood Urea Nitrogen 13 mg/dL (7-17); Calcium 8.7 mg/dL (8.4-10.2); Hemolysis Index 29
--- NOTE | 2018-10-22 17:47 | XRay Report ---
FINAL REPORT PROCEDURE: XR CHEST 1V AP TECHNIQUE: Chest radiograph anteroposterior view. CPT 83116 HISTORY: palpitations COMPARISON: 10/14/2018 FINDINGS: Heart: Normal. Mediastinum/Vessels: Normal. Lungs/Pleural space: No infiltrate, effusion, or pneumothorax. Bony thorax: No acute osseous abnormality. Life support devices: None. IMPRESSION: No radiographic evidence of acute cardiopulmonary abnormality.
[2018-10-22 17:52] LABS: Free T4 (Free Thyroxine) 1.21 ng/dL (0.76-1.46)
[2018-10-22 17:56] VITALS: BP 119/69
== END 2018-10-22 19:05 | disposition home or self-care (01) ==
LOC: ED 15:43
DX: I48.2 Chronic atrial fibrillation (principal); I10 Essential (primary) hypertension; E11.9 Type 2 diabetes mellitus without complications; K21.9 Gastro-esophageal reflux disease without esophagitis; E78.00 Pure hypercholesterolemia, unspecified; Z87.891 Personal history of nicotine dependence; Z88.5 Allergy status to narcotic agent
CPT/HCPCS: 36415; 71045; 80048; 80162; 82550; 82553; 83880; 84439; 84443; 84484; 85025; 85610; 85730; 93005; 93010; 96374

== ENCOUNTER 2019-10-16 14:32 | Observation (INO) | payer MEDICARE ==
--- NOTE | 2019-10-16 13:22 | XRay Report ---
CHEST 1 VIEW INDICATION / CLINICAL INFORMATION: Chest Pain. COMPARISON: 06/10/2019. FINDINGS: SUPPORT DEVICES: None. HEART / MEDIASTINUM: No significant abnormality. LUNGS / PLEURA: No significant pulmonary or pleural abnormality. No pneumothorax. ADDITIONAL FINDINGS: No significant additional findings. IMPRESSION: No evidence of acute cardiopulmonary disease. Signer Name: Abdi Richards MD Signed: 10/16/2019 1:17 PM Workstation Name: [id number]
[2019-10-16 13:27] LABS: Basophils % (Auto) 0.6 % (0.0-1.8); Eosinophils % (Auto) 0.1 % (0.0-4.3); Hematocrit 43.3 % (30.3-42.9); Hemoglobin 14.5 gm/dl (10.1-14.3); Lymphocytes # (Auto) 0.7 K/mm3 (1.2-5.4); Lymphocytes % (Auto) 9.6 % (13.4-35.0); Mean Corpuscular HGB Conc 34 % (30-34); Mean Corpuscular Volume 90 fl (79-97); Monocytes # (Auto) 0.2 K/mm3 (0.0-0.8); Monocytes % (Auto) 2.1 % (0.0-7.3); Platelet Count 174 K/mm3 (140-440); Red Blood Count 4.83 M/mm3 (3.65-5.03); Red Cell Distribution Width 14.7 % (13.2-15.2)
--- NOTE | 2019-10-16 13:29 | Emergency Department Report ---
ED General Adult HPI - General Chief complaint: Chest Pain Stated complaint: CHEST PAIN Source: patient, EMS Mode of arrival: Stretcher Limitations: No Limitations - History of Present Illness Initial comments: 79-year-old female presents to the emergency department for evaluation of substernal chest pain she states initially felt like indigestion. However she took no medicine for indigestion. She states that she did get nauseated and vomited 1. There was no apparent signs of GI bleeding. She stated that the chest pain and the nausea has now resolved. She was transported via EMS. She is given a nitroglycerin which she stated was of benefit as well as aspirin. At the time of her chest pain she also experienced radiation to her jaw or below her chin. She also felt like she was sweaty and somewhat short of breath. Despite this relatively classic history for acute coronary syndrome, the patient states that she had a cardiac cath at [facility] last month which was negative for blockages. I'm not entirely sure this was indeed a cardiac cath. Records have been requested. The patient states that she was admitted for atrial fibrillation and chest pain. She states that she was put on an anticoagulant which she self discontinued. She states that she was prescribed it once a day medicine for atrial fibrillation. She states that 3 weeks ago she discontinued this medication because she was told to do so if her heart rate was 40. 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 Severity scale (0 -10): 0 - Related Data Home Medications Medication Instructions Recorded Confirmed Last Taken Omeprazole 20 mg PO DAILY 10/22/18 10/22/18 Unknown Previous Rx's Medication Instructions Recorded Last Taken Type Apixaban [Eliquis] 5 mg PO Q12HR #60 tablet 10/18/18 Unknown Rx Digoxin [Lanoxin] 0.125 mg PO DAILY@1700 #30 tablet 10/18/18 Unknown Rx Metoprolol Tartrate 25 mg PO BID #60 tablet 10/18/18 Unknown Rx Allergies Allergy/AdvReac Type Severity Reaction Status Date / Time codeine AdvReac Dizziness Verified 06/23/13 12:24 ED Review of Systems ROS: Stated complaint: CHEST PAIN Other details as noted in HPI ED Past Medical Hx - Past Medical History Hx Hypertension: Yes (diet controlled) Hx Diabetes: Yes Hx GERD: Yes Additional medical history: HIGH CHOLESTEROL,AFIB - Surgical History Additional Surgical History: HYST., C SECTION - Social History Smoking Status: Never Smoker - Medications Home Medications: Home Medications Medication Instructions Recorded Confirmed Last Taken Type Apixaban [Eliquis] 5 mg PO Q12HR #60 tablet 10/18/18 10/22/18 Unknown Rx Digoxin [Lanoxin] 0.125 mg PO DAILY@1700 #30 tablet 10/18/18 Unknown Rx Metoprolol Tartrate 25 mg PO BID #60 tablet 10/18/18 10/22/18 Unknown Rx Omeprazole 20 mg PO DAILY 10/22/18 10/22/18 Unknown History ED Physical Exam - General Limitations: No Limitations ED Course Vital Signs 10/16/19 10/16/19 12:56 12:57 Temperature 98.3 F Pulse Rate 61 Respiratory 14 14 Rate Blood Pressure 155/59 [Right] O2 Sat by Pulse 95 Oximetry ED Medical Decision Making - Lab Data Result diagrams: 10/16/19 13:08 10/16/19 13:08 Critical care attestation.: If time is entered above; I have spent that time in minutes in the direct care of this critically ill patient, excluding procedure time. ED Disposition Condition: Stable
[2019-10-16 13:39] LABS: INR 1.01 (0.87-1.13)
[2019-10-16 13:40] LABS: Partial Thromboplastin Time 25.8 Sec. (24.2-36.6)
[2019-10-16 13:47] LABS: BUN/Creatinine Ratio 15; Blood Urea Nitrogen 12 mg/dL (7-17); Hemolysis Index 1
[2019-10-16 13:51] LABS: Alanine Aminotransferase 11 units/L (7-56)
[2019-10-16 13:58] LABS: Bilirubin,Direct < 0.2 mg/dL (0-0.2)
--- NOTE | 2019-10-16 14:30 | Emergency Department Report ---
ED Chest Pain HPI - General Chief Complaint: Chest Pain Stated Complaint: CHEST PAIN Source: patient, EMS Mode of arrival: Stretcher Limitations: No Limitations - History of Present Illness Initial Comments: 79-year-old female presents to the emergency department for evaluation of substernal chest pain she states initially felt like indigestion. However she took no medicine for indigestion. She states that she did get nauseated and vomited 1. There was no apparent signs of GI bleeding. She stated that the chest pain and the nausea has now resolved. She was transported via EMS. She is given a nitroglycerin which she stated was of benefit as well as aspirin. At the time of her chest pain she also experienced radiation to her jaw or below her chin. She also felt like she was sweaty and somewhat short of breath. Despite this relatively classic history for acute coronary syndrome, the patient states that she had a cardiac cath at [facility] last month which was negative for blockages. I'm not entirely sure this was indeed a cardiac cath. Records have been requested. The patient states that she was admitted for atrial fibrillation and chest pain. She states that she was put on an anticoagulant which she self discontinued. She states that she was prescribed it once a day medicine for atrial fibrillation. She states that 3 weeks ago she discontinued this medication because she was told to do so if her heart rate was 40. 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 It appears the patient is also been admitted to this facility with paroxysmal atrial fibrillation and chest pain at least once in May and September 2018. Per her last cardiology consultation: Assessment and Plan 1. Atypical chest pain 2. Paroxysmal atrial fibrillation 3. Essential hypertension 4. Obesity Recent cardiac workup done as old records include Lexiscan stress images which was normal and echocardiogram which also showed normal global and regional LV function. Plan. Obtain recent cardiac workup from [facility]. Obtain further cardiac isoenzymes. Patient is currently stable [facility] Complaint: chest pain -: Gradual Onset: during rest Pain Location: substernal Pain Radiation: neck, jaw/teeth Severity: moderate Severity scale (0 -10): 0 Quality: other Consistency: now resolved Improves With: nitroglycerin Worsens With: nothing Context: other re: nausea, vomting, diaphoresis (at least sweating), dyspnea - Related Data Home Medications Medication Instructions Recorded Confirmed Last Taken Omeprazole 20 mg PO DAILY 10/22/18 10/22/18 Unknown Previous Rx's Medication Instructions Recorded Last Taken Type Apixaban [Eliquis] 5 mg PO Q12HR #60 tablet 10/18/18 Unknown Rx Digoxin [Lanoxin] 0.125 mg PO DAILY@1700 #30 tablet 10/18/18 Unknown Rx Metoprolol Tartrate 25 mg PO BID #60 tablet 10/18/18 Unknown Rx Allergies Allergy/AdvReac Type Severity Reaction Status Date / Time codeine AdvReac Dizziness Verified 06/23/13 12:24 Heart Score - HEART Score History: Highly suspicious EKG: Non-specific Age: > 65 Risk factors: > 3 risk factors or hx of atherosclerotic disease Troponin: < normal limit HEART Score: 7 - Critical Actions Critical Actions: >7 pts:50-65% risk of adverse cardiac event. Early invasive measures ED Review of Systems ROS: Stated complaint: CHEST PAIN Other details as noted in HPI Constitutional: denies: chills, fever Eyes: denies: eye pain, vision change ENT: denies: ear pain, throat pain Respiratory: shortness of breath. denies: cough, wheezing Cardiovascular: chest pain. denies: palpitations Endocrine: no symptoms reported Gastrointestinal: nausea, vomiting. denies: abdominal pain, diarrhea Genitourinary: denies: urgency, dysuria, discharge Musculoskeletal: denies: back pain, joint swelling Skin: denies: rash, lesions Neurological: denies: headache, weakness, paresthesias Psychiatric: denies: anxiety, depression Hematological/Lymphatic: denies: easy bleeding, easy bruising ED Past Medical Hx - Past Medical History Hx Hypertension: Yes (diet controlled) Hx Diabetes: Yes Hx GERD: Yes Additional medical history: HIGH CHOLESTEROL,AFIB - Surgical History Additional Surgical History: HYST., C SECTION - Social History Smoking Status: Never Smoker - Medications Home Medications: Home Medications Medication Instructions Recorded Confirmed Last Taken Type Apixaban [Eliquis] 5 mg PO Q12HR #60 tablet 10/18/18 10/22/18 Unknown Rx Digoxin [Lanoxin] 0.125 mg PO DAILY@1700 #30 tablet 10/18/18 Unknown Rx Metoprolol Tartrate 25 mg PO BID #60 tablet 10/18/18 10/22/18 Unknown Rx Omeprazole 20 mg PO DAILY 10/22/18 10/22/18 Unknown History ED Physical Exam - General Limitations: No Limitations General appearance: alert, in no apparent distress - Head Head exam: Present: atraumatic, normocephalic - Eye Eye exam: Present: normal appearance. Absent: scleral icterus - ENT ENT exam: Present: mucous membranes moist - Neck Neck exam: Present: normal inspection. Absent: tenderness, meningismus - Respiratory Respiratory exam: Present: normal lung sounds bilaterally. Absent: respiratory distress - Cardiovascular Cardiovascular Exam: Present: regular rate, normal rhythm. Absent: systolic murmur, diastolic murmur, rubs, gallop - GI/Abdominal GI/Abdominal exam: Present: soft, normal bowel sounds. Absent: distended, tenderness, guarding, rebound - Extremities Exam Extremities exam: Present: normal inspection - Back Exam Back exam: Present: normal inspection - Neurological Exam Neurological exam: Present: alert, oriented X3, CN II-XII intact. Absent: motor sensory deficit - Psychiatric Psychiatric exam: Present: normal affect, normal mood - Skin Skin exam: Present: warm, dry, intact, normal color. Absent: rash ED Course Vital Signs 10/16/19 10/16/19 12:56 12:57 Temperature 98.3 F Pulse Rate 61 Respiratory 14 14 Rate Blood Pressure 155/59 [Right] O2 Sat by Pulse 95 Oximetry - Reevaluation(s) Reevaluation #1: Records called from [facility]. Case is referred to Dr. Aaron, the hospitalist. 10/16/19 14:29 CHRIS score - Chris Score Age > 65: (1) Yes Aspirin use within the Past 7 Days: (0) No 3 or more CAD Risk Factors: (1) Yes 2 or more Angina events in past 24 hrs: (0) No Known CAD with more than 50% Stenosis: (0) No Elevated Cardiac Markers: (0) No ST Deviation Greater than 0.5mm: (0) No CHRIS Score: 2 ED Medical Decision Making - Lab Data Result diagrams: 10/16/19 13:08 10/16/19 13:08 Laboratory Results - last 24 hr 10/16/19 10/16/19 10/16/19 13:08 13:08 13:08 WBC 7.6 RBC 4.83 Hgb 14.5 H Hct 43.3 H MCV 90 MCH 30 MCHC 34 RDW 14.7 Plt Count 174 Lymph % (Auto) 9.6 L [place] % (Auto) 2.1 Eos % (Auto) 0.1 Baso % (Auto) 0.6 Lymph # 0.7 L [place] # 0.2 Eos # 0.0 Baso # 0.0 Seg Neutrophils % 87.6 H Seg Neutrophils # 6.6 PT INR APTT Sodium 141 Potassium 4.2 Chloride 100.6 Carbon Dioxide 27 Anion Gap 18 BUN 12 Creatinine 0.8 Estimated GFR > 60 BUN/Creatinine Ratio 15 Glucose 185 H Calcium 9.0 Magnesium Total Bilirubin Direct Bilirubin Indirect Bilirubin AST ALT Alkaline Phosphatase Troponin T < 0.010 NT-Pro-B Natriuret Pep Total Protein Albumin Albumin/Globulin Ratio 10/16/19 10/16/19 10/16/19 13:08 13:08 13:08 WBC RBC Hgb Hct MCV MCH MCHC RDW Plt Count Lymph % (Auto) [place] % (Auto) Eos % (Auto) Baso % (Auto) Lymph # [place] # Eos # Baso # Seg Neutrophils % Seg Neutrophils # PT 13.4 INR 1.01 APTT 25.8 Sodium Potassium Chloride Carbon Dioxide Anion Gap BUN Creatinine Estimated GFR BUN/Creatinine Ratio Glucose Calcium Magnesium 1.90 Total Bilirubin 0.70 Direct Bilirubin < 0.2 Indirect Bilirubin 0.5 AST 17 ALT 11 Alkaline Phosphatase 107 Troponin T NT-Pro-B Natriuret Pep 612.2 Total Protein 7.2 Albumin 4.0 Albumin/Globulin Ratio 1.3 - EKG Data -: EKG Interpreted by Ok EKG shows normal: sinus rhythm, axis, intervals, QRS complexes, ST-T waves Rate: bradycardia - EKG Data Interpretation: no acute changes - Radiology Data Radiology results: report reviewed (no acute process) Critical care attestation.: If time is entered above; I have spent that time in minutes in the direct care of this critically ill patient, excluding procedure time. ED Disposition Clinical Impression: Paroxysmal atrial fibrillation, Medical non-compliance, Dyslipidemia, Sinus bradycardia Chest pain Qualifiers: Chest pain type: unspecified Qualified Code(s): R07.9 - Chest pain, unspecified Hyperglycemia due to type 2 diabetes mellitus Qualifiers: Diabetes mellitus intermediate insulin use: without intermediate use Qualified Code(s): E11.65 - Type 2 diabetes mellitus with hyperglycemia Disposition: OP ADMIT IP TO THIS HOSP Is pt being admited?: Yes Does the pt Need Aspirin: Yes Condition: Stable Instructions: Chest Pain (ED), Diabetes Mellitus Type 2 in Adults (ED) Time of Disposition: 14:32
[2019-10-16] MEDS ORDERED: ASPIRIN 81 MG TAB CHEW PO ONE (14:33)
--- NOTE | 2019-10-16 19:24 | History and Physical Report ---
History of Present Illness Date of examination: 10/16/19 Date of admission: 10/16/19 14:34 Chief complaint: Chest pain since a.m. History of present illness: 79-year-old female with history of hypertension, atrial fibrillation, obesity comes in for chest pain since a.m. Patient chest pain is substernal. Patient feels that it may be reflux symptoms and apparently vomited x1. No signs of hematemesis. Patient was admitted a month ago for chest pain and atrial fibrillation and complete work-up was done at [facility]. Records not available but were requested. Apparently cardiac cath was done. Will get [facility] involved who took care of this patient. No diaphoresis or shortness of breath. No radiation of the chest pain. No recent travel. Chest pain is about 6 on a scale of 1-10. No exacerbating or relieving factors. Patient stopped taking her Eliquis because of the side effects. Recent cardiac workup done as old records include Lexiscan stress images which was normal and echocardiogram which also showed normal global and regional LV function. Past Medical History Hypertension: Yes (diet controlled) Diabetes: Yes GERD: Yes Additional medical history: HIGH CHOLESTEROL,AFIB Surgical History Additional Surgical History: HYST., C SECTION Social History Smoking Status: Never Smoker Family history hypertension Medications Home Medications: Home Medications Medication Instructions Recorded Confirmed Last Taken Type Apixaban [Eliquis] 5 mg PO Q12HR #60 tablet 10/18/18 10/22/18 Unknown Rx Digoxin [Lanoxin] 0.125 mg PO DAILY@1700 #30 tablet 10/18/18 Unknown Rx Metoprolol Tartrate 25 mg PO BID #60 tablet 10/18/18 10/22/18 Unknown Rx Omeprazole 20 mg PO DAILY 10/22/18 10/22/18 Unknown History Review of Systems ROS: Stated complaint: CHEST PAIN Other details as noted in HPI Constitutional: denies: chills, fever Eyes: denies: eye pain, vision change ENT: denies: ear pain, throat pain Respiratory: shortness of breath. denies: cough, wheezing Cardiovascular: chest pain. denies: palpitations Endocrine: no symptoms reported Gastrointestinal: nausea, vomiting. denies: abdominal pain, diarrhea Genitourinary: denies: urgency, dysuria, discharge Musculoskeletal: denies: back pain, joint swelling Skin: denies: rash, lesions Neurological: denies: headache, weakness, paresthesias Psychiatric: denies: anxiety, depression Hematological/Lymphatic: denies: easy bleeding, easy bruising Medications and Allergies Allergies Allergy/AdvReac Type Severity Reaction Status Date / Time codeine AdvReac Dizziness Verified 06/23/13 12:24 Home Medications Medication Instructions Recorded Confirmed Last Taken Type Apixaban [Eliquis] 5 mg PO Q12HR #60 tablet 10/18/18 10/22/18 Unknown Rx Digoxin [Lanoxin] 0.125 mg PO DAILY@1700 #30 tablet 10/18/18 Unknown Rx Metoprolol Tartrate 25 mg PO BID #60 tablet 10/18/18 10/22/18 Unknown Rx Omeprazole 20 mg PO DAILY 10/22/18 10/22/18 Unknown History Exam - Constitutional Vitals: Temp Pulse Resp BP Pulse Ox 98.3 F 56 L 16 149/61 96 10/16/19 12:56 10/16/19 14:35 10/16/19 14:35 10/16/19 14:35 10/16/19 14:35 PHYLLIS score - Phyllis Score Age > 65: (1) Yes Aspirin use within the Past 7 Days: (1) Yes 3 or more CAD Risk Factors: (1) Yes 2 or more Angina events in past 24 hrs: (0) No Known CAD with more than 50% Stenosis: (0) No Elevated Cardiac Markers: (0) No ST Deviation Greater than 0.5mm: (0) No PHYLLIS Score: 3 Results - Labs CBC & Chem 7: 10/16/19 13:08 10/16/19 13:08 Labs: Laboratory Last Values WBC 7.6 K/mm3 (4.5-11.0) 10/16/19 13:08 RBC 4.83 M/mm3 (3.65-5.03) 10/16/19 13:08 Hgb 14.5 gm/dl (10.1-14.3) H 10/16/19 13:08 Hct 43.3 % (30.3-42.9) H 10/16/19 13:08 MCV 90 fl (79-97) 10/16/19 13:08 MCH 30 pg (28-32) 10/16/19 13:08 MCHC 34 % (30-34) 10/16/19 13:08 RDW 14.7 % (13.2-15.2) 10/16/19 13:08 Plt Count 174 K/mm3 (140-440) 10/16/19 13:08 Lymph % (Auto) 9.6 % (13.4-35.0) L 10/16/19 13:08 [place] % (Auto) 2.1 % (0.0-7.3) 10/16/19 13:08 Eos % (Auto) 0.1 % (0.0-4.3) 10/16/19 13:08 Baso % (Auto) 0.6 % (0.0-1.8) 10/16/19 13:08 Lymph # 0.7 K/mm3 (1.2-5.4) L 10/16/19 13:08 [place] # 0.2 K/mm3 (0.0-0.8) 10/16/19 13:08 Eos # 0.0 K/mm3 (0.0-0.4) 10/16/19 13:08 Baso # 0.0 K/mm3 (0.0-0.1) 10/16/19 13:08 Seg Neutrophils % 87.6 % (40.0-70.0) H 10/16/19 13:08 Seg Neutrophils # 6.6 K/mm3 (1.8-7.7) 10/16/19 13:08 PT 13.4 Sec. (12.2-14.9) 10/16/19 13:08 INR 1.01 (0.87-1.13) 10/16/19 13:08 APTT 25.8 Sec. (24.2-36.6) 10/16/19 13:08 Sodium 141 mmol/L (137-145) 10/16/19 13:08 Potassium 4.2 mmol/L (3.6-5.0) 10/16/19 13:08 Chloride 100.6 mmol/L (98-107) 10/16/19 13:08 Carbon Dioxide 27 mmol/L (22-30) 10/16/19 13:08 Anion Gap 18 mmol/L 10/16/19 13:08 BUN 12 mg/dL (7-17) 10/16/19 13:08 Creatinine 0.8 mg/dL (0.7-1.2) 10/16/19 13:08 Estimated GFR > 60 ml/min 10/16/19 13:08 BUN/Creatinine Ratio 15 % 10/16/19 13:08 Glucose 185 mg/dL (65-100) H 10/16/19 13:08 Calcium 9.0 mg/dL (8.4-10.2) 10/16/19 13:08 Magnesium 1.90 mg/dL (1.7-2.3) 10/16/19 13:08 Total Bilirubin 0.70 mg/dL (0.1-1.2) 10/16/19 13:08 Direct Bilirubin < 0.2 mg/dL (0-0.2) 10/16/19 13:08 Indirect Bilirubin 0.5 mg/dL 10/16/19 13:08 AST 17 units/L (5-40) 10/16/19 13:08 ALT 11 units/L (7-56) 10/16/19 13:08 Alkaline Phosphatase 107 units/L (35-129) 10/16/19 13:08 Troponin T < 0.010 ng/mL (0.00-0.029) 10/16/19 13:08 NT-Pro-B Natriuret Pep 612.2 pg/mL (0-900) 10/16/19 13:08 Total Protein 7.2 g/dL (6.3-8.2) 10/16/19 13:08 Albumin 4.0 g/dL (3.9-5) 10/16/19 13:08 Albumin/Globulin Ratio 1.3 % 10/16/19 13:08 Short CBC 10/16/19 Range/Units 13:08 WBC 7.6 (4.5-11.0) K/mm3 Hgb 14.5 H (10.1-14.3) gm/dl Hct 43.3 H (30.3-42.9) % Plt Count 174 (140-440) K/mm3 BMP 10/16/19 13:08 Sodium 141 Potassium 4.2 Chloride 100.6 Carbon Dioxide 27 BUN 12 Creatinine 0.8 Glucose 185 H Calcium 9.0 Cardiac Enzymes 10/16/19 Range/Units 13:08 Troponin T < 0.010 (0.00-0.029) ng/mL Liver Function 10/16/19 Range/Units 13:08 Total Bilirubin 0.70 (0.1-1.2) mg/dL Direct Bilirubin < 0.2 (0-0.2) mg/dL AST 17 (5-40) units/L ALT 11 (7-56) units/L Alkaline Phosphatase 107 (35-129) units/L Albumin 4.0 (3.9-5) g/dL - Imaging and Cardiology EKG: report reviewed (Atrial fibrillation) Chest x-ray: report reviewed (No acute findings) Assessment and Plan Advance Directives: Yes (Full code) VTE prophylaxis?: Chemical Plan of care discussed with patient/family: Yes - Patient Problems (1) Chest pain Current Visit: Yes Status: Acute Qualifiers: Chest pain type: unspecified Qualified Code(s): R07.9 - Chest pain, unspecified Plan to address problem: Probably reflux esophagitis IV Protonix initiated Patient had complete work-up in [facility] including Lexiscan and cardiac cath recently 3 to 4 weeks ago Lexiscan was not ordered Cardiology consult [facility] have seen this patient in [facility] Given her elderly age of 79 patient was admitted for 23 hours observation for serial troponins. No Lexiscan at this time. (2) Paroxysmal atrial fibrillation Current Visit: Yes Status: Chronic Plan to address problem: Patient on digoxin and Eliquis (3) GERD (gastroesophageal reflux disease) Current Visit: No Status: Chronic Qualifiers: Esophagitis presence: with esophagitis Qualified Code(s): K21.0 - Gastro- esophageal reflux disease with esophagitis Plan to address problem: IV Protonix for now (4) HTN (hypertension) Current Visit: No Status: Chronic Qualifiers: Hypertension type: essential hypertension Qualified Code(s): I10 - Essential (primary) hypertension Plan to address problem: Continue antihypertensives (5) DVT prophylaxis Current Visit: Yes Status: Acute Plan to address problem: Patient already on Eliquis--hence heparin was not started-, patient also on IV Protonix hence no GI prophylaxis was initiated (6) Advance care planning Current Visit: Yes Status: Acute Plan to address problem: DNR was discussed Patient is full code (7) Discharge planning issues Current Visit: Yes Status: Acute Plan to address problem: Patient had complete work-up at [facility] Patient admitted in observation status because of her age to rule out by serial troponins Patient may be discharged if cleared by cardiology tomorrow. Cardiology consult was requested
[2019-10-16] MEDS ORDERED: HYDROmorphone 1 MG/1 ML INJ IV PRN (19:28)
[2019-10-16] MEDS ORDERED: ACETAMINOPHEN 325 MG TAB PO PRN (19:28)
[2019-10-16] MEDS ORDERED: oxyCODONE /ACETAMINOPHEN 5-325MG TAB PO PRN (19:28)
[2019-10-16] MEDS ORDERED: ONDANSETRON 4 MG/2 ML INJ IV PRN (19:28)
[2019-10-16] MEDS ORDERED: NON-FORMULARY EACH (Omeprazole [Omeprazole] 20 MG) PO SCH (19:30)
[2019-10-16] MEDS ORDERED: PANTOPRAZOLE 20 MG TAB PO SCH (19:31)
[2019-10-16] MEDS ORDERED: FAMOTIDINE 20 MG TAB PO SCH (22:00)
[2019-10-16] MEDS ORDERED: PANTOPRAZOLE 40 MG INJ IV SCH (22:00)
[2019-10-16] MEDS ORDERED: METOPROLOL TARTRATE 25 MG TAB PO SCH (22:00)
[2019-10-16] MEDS: APIXABAN 5 MG TAB PO SCH (22:53)
[2019-10-17 08:07] VITALS: BP 159/55
[2019-10-17] MEDS: APIXABAN 5 MG TAB PO SCH (09:51)
[2019-10-17] MEDS ORDERED: PANTOPRAZOLE 40 MG TAB PO SCH (10:00)
--- NOTE | 2019-10-17 10:38 | Consultation ---
History of Present Illness Consult date: 10/17/19 Consult reason: chest pain History of present illness: This is an 79-year old woman with a history of paroxysmal atrial fibrillation previously recommended eliquis for oral anticoagulation. There is no history of coronary artery disease. In fact, a cardiac cath done 3 months ago at [facility] reports no significant coronary artery disease, well preserved ejection fraction. Patient was brought to this hospital with palpitations associated with chest pain, nausea and vomiting. A chest x-ray was negative and her presenting ECG shows sinus rhythm, rate 55. A cardiac consultation has been requested for further evaluation. Medications and Allergies Allergies Allergy/AdvReac Type Severity Reaction Status Date / Time codeine AdvReac Dizziness Verified 06/23/13 12:24 Home Medications Medication Instructions Recorded Confirmed Last Taken Type Apixaban [Eliquis] 5 mg PO Q12HR #60 tablet 10/18/18 10/22/18 Unknown Rx Digoxin [Lanoxin] 0.125 mg PO DAILY@1700 #30 tablet 10/18/18 Unknown Rx Metoprolol Tartrate 25 mg PO BID #60 tablet 10/18/18 10/22/18 Unknown Rx Omeprazole 20 mg PO DAILY 10/22/18 10/22/18 Unknown History Active Meds: Active Medications Acetaminophen (Tylenol) 650 mg PO Q4H PRN PRN Reason: Pain MILD(1-3)/Fever >100.5/RICO Apixaban (Eliquis) 5 mg PO Q12HR [facility]; Protocol Last Admin: 10/17/19 09:51 Dose: 5 mg Documented by: Digoxin (Lanoxin) 0.125 mg PO DAILY@1700 GENNY Hydromorphone HCl (Dilaudid) 0.5 mg IV Q3H PRN PRN Reason: Pain , Severe (7-10) Ondansetron HCl (Zofran) 4 mg IV Q8H PRN PRN Reason: Nausea And Vomiting Oxycodone/Acetaminophen (Percocet 5/325) 1 tab PO Q6H PRN PRN Reason: Pain, Moderate (4-6) Pantoprazole Sodium (Protonix) 40 mg PO BID [facility] Last Admin: 10/17/19 09:51 Dose: 40 mg Documented by: Sodium Chloride (Sodium Chloride Flush Syringe 10 Ml) 10 ml IV BID [facility] Last Admin: 10/17/19 09:52 Dose: 10 ml Documented by: Sodium Chloride (Sodium Chloride Flush Syringe 10 Ml) 10 ml IV PRN PRN PRN Reason: LINE FLUSH Physical Examination Vital Signs Pulse Ox 95 10/16/19 12:53 General appearance: no acute distress HEENT: Positive: PERRL Neck: Positive: trachea midline Lungs: Positive: Decreased Breath Sounds Neuro: Positive: Grossly Intact Extremities: Absent: edema Results 10/16/19 13:08 10/16/19 13:08 Cardiac Enzymes 10/16/19 Range/Units 13:08 AST 17 (5-40) units/L Coagulation 10/16/19 Range/Units 13:08 PT 13.4 (12.2-14.9) Sec. INR 1.01 (0.87-1.13) APTT 25.8 (24.2-36.6) Sec. CBC 10/16/19 Range/Units 13:08 WBC 7.6 (4.5-11.0) K/mm3 RBC 4.83 (3.65-5.03) M/mm3 Hgb 14.5 H (10.1-14.3) gm/dl Hct 43.3 H (30.3-42.9) % Plt Count 174 (140-440) K/mm3 Lymph # 0.7 L (1.2-5.4) K/mm3 [place] # 0.2 (0.0-0.8) K/mm3 Eos # 0.0 (0.0-0.4) K/mm3 Baso # 0.0 (0.0-0.1) K/mm3 Comprehensive Metabolic Panel 10/16/19 10/16/19 Range/Units 13:08 13:08 Sodium 141 (137-145) mmol/L Potassium 4.2 (3.6-5.0) mmol/L Chloride 100.6 (98-107) mmol/L Carbon Dioxide 27 (22-30) mmol/L BUN 12 (7-17) mg/dL Creatinine 0.8 (0.7-1.2) mg/dL Glucose 185 H (65-100) mg/dL Calcium 9.0 (8.4-10.2) mg/dL Direct Bilirubin < 0.2 (0-0.2) mg/dL Indirect Bilirubin 0.5 mg/dL AST 17 (5-40) units/L ALT 11 (7-56) units/L Alkaline Phosphatase 107 (35-129) units/L Total Protein 7.2 (6.3-8.2) g/dL Albumin 4.0 (3.9-5) g/dL Assessment and Plan Paroxysmal atrial fibrillation on eliquis for oral anticoagulation therapy currently in sinus rhythm Chest pain, atypical C 06/2019: no significant coronary artery disease, LVEF well preserved. Hypertension Diabetes No cardiac workup indicated. Patient can be discharged home today. She will follow up in our office for an outpatient event monitor. We will sign off.
--- NOTE | 2019-10-17 12:12 | Discharge Summary ---
Providers - Providers Date of Admission: 10/16/19 14:34 Date of discharge: 10/17/19 Attending physician: NATI KNOTT 10/16/19 19:28 Consult to Physician [CONS] Routine Comment: Consulting Provider: LYNNETTE SAEZ Physician Instructions: Reason For Exam: Chest pain, recent admission to [place] Primary care physician: MANAGER POOL Hospitalization Condition: Stable Disposition: HI-01 TO HOME OR SELFCARE Time spent for discharge: 32 min Core Measure Documentation - Palliative Care Palliative Care/ Comfort Measures: Not Applicable - Core Measures Any of the following diagnoses?: none Exam - Constitutional Vitals: Temp Pulse Resp BP Pulse Ox 98.4 F 45 L 20 159/55 95 10/17/19 08:03 10/17/19 08:06 10/17/19 08:03 10/17/19 08:03 10/17/19 08:06 General appearance: Present: no acute distress, well-nourished - EENT Eyes: Present: PERRL, EOM intact - Neck Neck: Present: supple, normal ROM - Respiratory Respiratory effort: normal Respiratory: bilateral: diminished, negative: rales, rhonchi, wheezing - Cardiovascular Rhythm: regular Heart Sounds: Present: S1 & S2 - Extremities Extremities: no ischemia, No edema - Abdominal General gastrointestinal: Present: soft, non-tender, non-distended, normal bowel sounds - Integumentary Integumentary: Present: clear, warm - Musculoskeletal Musculoskeletal: strength equal bilaterally - Psychiatric Psychiatric: appropriate mood/affect, cooperative - Neurologic Neurologic: CNII-XII intact, moves all extremities Plan Activity: advance as tolerated, fall precautions Diet: other (cardiac diet) Follow up with: CATHI HOANG MD [Primary Care Provider] - 7 Days ROSA FRANKS MD [Staff Physician] - 7 Days
[2019-10-17] MEDS ORDERED: DIGOXIN 0.125 MG TAB PO SCH (17:00)
== END 2019-10-17 13:00 | disposition home or self-care (01) ==
LOC: 2B-ACE 14:34
PROVIDERS: ADMIT Internal Medicine; ATTEND Internal Medicine
DX: I48.0 Paroxysmal atrial fibrillation (principal); R07.89 Other chest pain; K21.9 Gastro-esophageal reflux disease without esophagitis; I10 Essential (primary) hypertension; E66.9 Obesity, unspecified; R11.2 Nausea with vomiting, unspecified; E78.5 Hyperlipidemia, unspecified; E11.65 Type 2 diabetes mellitus with hyperglycemia; Z79.899 Other long term (current) drug therapy; Z91.19 Patient's noncompliance with other medical treatment and regimen
CPT/HCPCS: 36415; 71045; 80048; 80076; 83735; 83880; 84484; 85025; 85610; 85730; 87116; 93005; 93010; 96374; 99284; C9113; G0378